=== PATIENT | female | born 1995 | race Caucasian/White ===

== ENCOUNTER → 2020-03-05 | Outpatient (CLI) | payer MEDICAID, SELFPAY | END | disposition home or self-care (01) | LOC: LABSPEC 12:04 | PROVIDERS: PCP Family Medicine; Referring Provider Family Medicine; Visit Provider Family Medicine | DX: Z11.59 Encounter for screening for other viral diseases (principal) | CPT/HCPCS: 87635; 94799; G2023; U0003 ==